=== PATIENT | female | born 1950 | race Caucasian/White ===

== ENCOUNTER 2017-03-19 16:56 | Inpatient (IN) | payer MEDICARE, OTHER ==
[~2017-03-19] VITALS: Ht 160 cm; Wt 60.8 kg
[2017-03-19] MEDS ORDERED: Z GUARD REMEDY PASTE 57 GM TUBE TOP PRN (23:00)
[2017-03-19] MEDS ORDERED: ASPI81TA31 PO (23:59)
[2017-03-19] MEDS ORDERED: BUSP10TA3 PO (23:59)
[2017-03-19] MEDS ORDERED: TRAM50TA2 PO (23:59)
[2017-03-19] MEDS ORDERED: BENZ1TAB7 PO (23:59)
[2017-03-19] MEDS ORDERED: AMLO10TA2 PO (23:59)
[2017-03-19] MEDS ORDERED: ACET-2154 PO (23:59)
[2017-03-19] MEDS ORDERED: MIRT7.5T10 PO (23:59)
[2017-03-19] MEDS ORDERED: CALC-977 PO (23:59)
[2017-03-19] MEDS ORDERED: RISP4TAB17 PO (23:59)
[2017-03-19] MEDS ORDERED: LISI-603 PO (23:59)
[2017-03-19] MEDS ORDERED: POLY17PO4 PO (23:59)
[2017-03-19] MEDS ORDERED: NA P133E RC (23:59)
[2017-03-19] MEDS ORDERED: PANT40TA4 PO (23:59)
[2017-03-19] MEDS ORDERED: OXYC-128 PO (23:59)
[2017-03-19] MEDS ORDERED: LEVO50TA PO (23:59)
[2017-03-19] MEDS ORDERED: METO25TA6 PO (23:59)
[2017-03-20 01:24] VITALS: BP 146/68
[2017-03-20 10:49] VITALS: BP 134/73
[2017-03-20] MEDS ORDERED: OXYCODONE/APAP 5-325 MG TABLET PO PRN ×3 (15:45→19:45)
[2017-03-20] MEDS: GABAPENTIN 100 MG CAPSULE PO SCH (17:02)
[2017-03-20] MEDS ORDERED: ACETAMINOPHEN 325 MG TABLET PO PRN (19:45)
[2017-03-20] MEDS ORDERED: Z GUARD REMEDY PASTE 57 GM TUBE TOP PRN (19:45)
[2017-03-20] MEDS ORDERED: ACETAMINOPHEN 325 MG TABLET PO SCH (19:45)
[2017-03-20] MEDS ORDERED: MAGNESIUM HYDROXIDE 30 ML LIQUID UDC PO PRN (19:45)
[2017-03-20] MEDS ORDERED: ZOLPIDEM 5 MG TABLET PO PRN (19:45)
[2017-03-20] MEDS ORDERED: ONDANSETRON 4 MG/2 ML VIAL IV PRN (19:45)
[2017-03-20] MEDS ORDERED: FLEET ENEMA 133 ML BOTTLE RC PRN (19:45)
[2017-03-20] MEDS ORDERED: OXYCODONE HCL 10 MG TAB.SR.12H PO SCH (21:00)
[2017-03-20] MEDS: MIRTAZAPINE 15 MG TABLET PO SCH (21:00)
[2017-03-20 21:01] VITALS: BP 144/74
[2017-03-20] MEDS: MIRALAX 17 GM POWD.PACK PO SCH (21:07)
[2017-03-20] MEDS: TRAMADOL HCL 50 MG TABLET PO SCH (21:08)
[2017-03-20] MEDS: BENZTROPINE MESYLATE 1 MG TABLET PO SCH (21:08)
[2017-03-20] MEDS: DOCUSATE SODIUM 100 MG CAPSULE PO SCH (21:09)
[2017-03-21] MEDS: TRAMADOL HCL 50 MG TABLET PO SCH ×2 (01:45→08:01)
[2017-03-21] MEDS: HYDROCODONE/APAP 5-325MG TABLET PO PRN ×2 (06:47→13:11)
[2017-03-21] MEDS: PANTOPRAZOLE SODIUM 40 MG TABLET.DR PO SCH (06:48)
[2017-03-21] MEDS: LEVOTHYROXINE SODIUM 50 MCG TABLET PO SCH (06:48)
[2017-03-21] MEDS ORDERED: PANTOPRAZOLE SODIUM 40 MG TABLET.DR PO SCH (07:00)
[2017-03-21 07:51] VITALS: BP 144/71
[2017-03-21] MEDS: AMLODIPINE 10 MG TABLET PO SCH (08:00)
[2017-03-21] MEDS: CALCIUM CARB/VITAMIN D 500MG-200UNITS TABLET PO SCH ×2 (08:00→16:06)
[2017-03-21] MEDS: ASPIRIN 81 MG TAB.CHEW PO SCH (08:00)
[2017-03-21] MEDS: NICOTINE 7 MG/24HR PATCH TD SCH (08:00)
[2017-03-21] MEDS: METOPROLOL TARTRATE 25 MG TABLET PO SCH ×2 (08:01→16:06)
[2017-03-21] MEDS: risperiDONE 2 MG TABLET PO SCH ×2 (08:01→16:05)
[2017-03-21] MEDS: GABAPENTIN 100 MG CAPSULE PO SCH ×2 (08:01→16:06)
[2017-03-21] MEDS: busPIRone 10 MG TABLET PO SCH ×2 (08:01→16:06)
[2017-03-21 08:26] LABS: BASOPHILS % (AUTO) 0.6 % (0.0-2.0); EOSINOPHILS # (AUTO) 0.4 K/uL (0.0-0.7); EOSINOPHILS % (AUTO) 5.3 % (0.0-7.0); HEMATOCRIT 29.4 % (31.2-41.9); HEMOGLOBIN 9.5 g/dL (10.9-14.3); LYMPHOCYTES # (AUTO) 1.9 K/uL (20.0-40.0); LYMPHOCYTES % (AUTO) 25.1 % (20.5-51.5); MEAN CORPUSCULAR HEMOGLOBIN 24.5 uug (24.7-32.8); MEAN CORPUSCULAR HGB CONC 32 g/dL (32.3-35.6); MEAN CORPUSCULAR VOLUME 75.8 fL (75.5-95.3); MONOCYTES # (AUTO) 0.6 K/uL (2.0-10.0); MONOCYTES % (AUTO) 7.5 % (0.0-11.0); NEUTROPHILS # (AUTO) 4.8 K/uL (1.8-8.9); NEUTROPHILS % (AUTO) 61.5 % (38.5-71.5); PLATELET COUNT (AUTO) 333 K/uL (179-408); RED BLOOD CELL COUNT(AUTO) 3.87 MIL/uL (3.63-4.92); WHITE BLOOD COUNT (AUTO) 7.7 K/uL (3.8-11.8)
[2017-03-21 08:38] LABS: CREATININE 1.2 mg/dL (0.6-1.3); MAGNESIUM 1.8 mg/dL (1.8-2.4); PHOSPHOROUS 4.1 mg/dL (2.5-4.9); POTASSIUM 4.1 mmol/L (3.5-5.1)
[2017-03-21] MEDS ORDERED: LISINOPRIL 20 MG TABLET PO SCH (09:00)
[2017-03-21] MEDS: LISINOPRIL 20 MG TABLET PO SCH (16:06)
[2017-03-21] MEDS: DOCUSATE SODIUM 100 MG CAPSULE PO SCH (20:38)
[2017-03-21] MEDS: MIRTAZAPINE 15 MG TABLET PO SCH (20:39)
[2017-03-21] MEDS: MIRALAX 17 GM POWD.PACK PO SCH (20:40)
[2017-03-21] MEDS: OXYCODONE HCL 10 MG TAB.SR.12H PO SCH (20:41)
[2017-03-21] MEDS: BENZTROPINE MESYLATE 1 MG TABLET PO SCH (20:43)
[2017-03-21 21:45] VITALS: BP 107/64
[2017-03-22] MEDS: PANTOPRAZOLE SODIUM 40 MG TABLET.DR PO SCH (06:07)
[2017-03-22] MEDS: LEVOTHYROXINE SODIUM 50 MCG TABLET PO SCH (06:07)
[2017-03-22 07:15] VITALS: BP 124/59
[2017-03-22] MEDS: CALCIUM CARB/VITAMIN D 500MG-200UNITS TABLET PO SCH ×2 (08:38→17:11)
[2017-03-22] MEDS: METOPROLOL TARTRATE 25 MG TABLET PO SCH ×2 (08:38→17:11)
[2017-03-22] MEDS: LISINOPRIL 20 MG TABLET PO SCH ×2 (08:39→17:14)
[2017-03-22] MEDS: risperiDONE 2 MG TABLET PO SCH ×2 (08:39→17:16)
[2017-03-22] MEDS: ASPIRIN 81 MG TAB.CHEW PO SCH (08:39)
[2017-03-22] MEDS: GABAPENTIN 100 MG CAPSULE PO SCH ×2 (08:39→17:11)
[2017-03-22] MEDS: AMLODIPINE 10 MG TABLET PO SCH (08:39)
[2017-03-22] MEDS: busPIRone 10 MG TABLET PO SCH ×2 (08:41→17:11)
[2017-03-22] MEDS: OXYCODONE HCL 10 MG TAB.SR.12H PO SCH ×2 (08:41→20:58)
[2017-03-22] MEDS: NICOTINE 7 MG/24HR PATCH TD SCH (08:41)
[2017-03-22] MEDS: DOCUSATE SODIUM 100 MG CAPSULE PO SCH (20:57)
[2017-03-22] MEDS: MIRTAZAPINE 15 MG TABLET PO SCH (20:58)
[2017-03-22] MEDS: BENZTROPINE MESYLATE 1 MG TABLET PO SCH (20:58)
[2017-03-22 20:59] VITALS: BP 126/52
[2017-03-22] MEDS: MIRALAX 17 GM POWD.PACK PO SCH (20:59)
[2017-03-23] MEDS: PANTOPRAZOLE SODIUM 40 MG TABLET.DR PO SCH (06:09)
[2017-03-23] MEDS: LEVOTHYROXINE SODIUM 50 MCG TABLET PO SCH (06:09)
[2017-03-23 08:20] VITALS: BP 136/83
[2017-03-23] MEDS: NICOTINE 7 MG/24HR PATCH TD SCH (10:25)
[2017-03-23] MEDS: METOPROLOL TARTRATE 25 MG TABLET PO SCH ×2 (10:26→17:54)
[2017-03-23] MEDS: OXYCODONE HCL 10 MG TAB.SR.12H PO SCH ×2 (10:26→21:05)
[2017-03-23] MEDS: LISINOPRIL 20 MG TABLET PO SCH ×2 (10:26→17:53)
[2017-03-23] MEDS: GABAPENTIN 100 MG CAPSULE PO SCH ×2 (10:26→17:45)
[2017-03-23] MEDS: busPIRone 10 MG TABLET PO SCH ×2 (10:27→17:46)
[2017-03-23] MEDS: AMLODIPINE 10 MG TABLET PO SCH (10:27)
[2017-03-23] MEDS: HYDROCODONE/APAP 5-325MG TABLET PO PRN (10:28)
[2017-03-23] MEDS: ASPIRIN 81 MG TAB.CHEW PO SCH (10:28)
[2017-03-23] MEDS: risperiDONE 2 MG TABLET PO SCH ×2 (10:28→17:46)
[2017-03-23] MEDS: CALCIUM CARB/VITAMIN D 500MG-200UNITS TABLET PO SCH ×2 (10:28→17:45)
[2017-03-23 20:27] VITALS: BP 128/73
[2017-03-23] MEDS: BENZTROPINE MESYLATE 1 MG TABLET PO SCH (21:04)
[2017-03-23] MEDS: DOCUSATE SODIUM 100 MG CAPSULE PO SCH (21:04)
[2017-03-23] MEDS: MIRTAZAPINE 15 MG TABLET PO SCH (21:05)
[2017-03-23] MEDS: MIRALAX 17 GM POWD.PACK PO SCH (21:05)
[2017-03-24] MEDS: PANTOPRAZOLE SODIUM 40 MG TABLET.DR PO SCH (06:08)
[2017-03-24] MEDS: LEVOTHYROXINE SODIUM 50 MCG TABLET PO SCH (06:08)
[2017-03-24 11:59] VITALS: BP 160/75
[2017-03-24] MEDS: risperiDONE 2 MG TABLET PO SCH ×2 (13:00→17:28)
[2017-03-24] MEDS: GABAPENTIN 100 MG CAPSULE PO SCH ×2 (13:00→17:28)
[2017-03-24] MEDS: busPIRone 10 MG TABLET PO SCH ×2 (13:01→17:28)
[2017-03-24] MEDS: OXYCODONE HCL 10 MG TAB.SR.12H PO SCH ×2 (13:01→21:20)
[2017-03-24] MEDS: ASPIRIN 81 MG TAB.CHEW PO SCH (13:01)
[2017-03-24] MEDS: AMLODIPINE 10 MG TABLET PO SCH (13:02)
[2017-03-24] MEDS: CALCIUM CARB/VITAMIN D 500MG-200UNITS TABLET PO SCH ×2 (13:02→17:28)
[2017-03-24] MEDS: METOPROLOL TARTRATE 25 MG TABLET PO SCH ×2 (13:02→17:29)
[2017-03-24] MEDS: LISINOPRIL 20 MG TABLET PO SCH ×2 (13:02→17:28)
[2017-03-24] MEDS: NICOTINE 7 MG/24HR PATCH TD SCH (13:05)
[2017-03-24 20:40] VITALS: BP 111/68
[2017-03-24] MEDS: BENZTROPINE MESYLATE 1 MG TABLET PO SCH (21:20)
[2017-03-24] MEDS: MIRTAZAPINE 15 MG TABLET PO SCH (21:20)
[2017-03-24] MEDS: DOCUSATE SODIUM 100 MG CAPSULE PO SCH (21:21)
[2017-03-24] MEDS: MIRALAX 17 GM POWD.PACK PO SCH (21:21)
[2017-03-25] MEDS: LEVOTHYROXINE SODIUM 50 MCG TABLET PO SCH ×2 (06:03→09:43)
[2017-03-25] MEDS: PANTOPRAZOLE SODIUM 40 MG TABLET.DR PO SCH ×2 (06:03→09:44)
[2017-03-25 08:35] VITALS: BP 123/66
[2017-03-25] MEDS: risperiDONE 2 MG TABLET PO SCH ×2 (09:43→17:51)
[2017-03-25] MEDS: AMLODIPINE 10 MG TABLET PO SCH (09:43)
[2017-03-25] MEDS: LISINOPRIL 20 MG TABLET PO SCH ×2 (09:44→17:54)
[2017-03-25] MEDS: busPIRone 10 MG TABLET PO SCH ×2 (09:44→17:52)
[2017-03-25] MEDS: GABAPENTIN 100 MG CAPSULE PO SCH ×2 (09:44→17:51)
[2017-03-25] MEDS: ASPIRIN 81 MG TAB.CHEW PO SCH (09:44)
[2017-03-25] MEDS: METOPROLOL TARTRATE 25 MG TABLET PO SCH ×2 (09:44→17:54)
[2017-03-25] MEDS: CALCIUM CARB/VITAMIN D 500MG-200UNITS TABLET PO SCH ×2 (09:45→17:51)
[2017-03-25] MEDS: OXYCODONE HCL 10 MG TAB.SR.12H PO SCH ×2 (09:45→20:37)
[2017-03-25] MEDS: NICOTINE 7 MG/24HR PATCH TD SCH (09:45)
[2017-03-25 20:26] VITALS: BP 142/80
[2017-03-25] MEDS: MIRALAX 17 GM POWD.PACK PO SCH (20:37)
[2017-03-25] MEDS: DOCUSATE SODIUM 100 MG CAPSULE PO SCH (20:37)
[2017-03-25] MEDS: MIRTAZAPINE 15 MG TABLET PO SCH (20:37)
[2017-03-25] MEDS: BENZTROPINE MESYLATE 1 MG TABLET PO SCH (20:37)
[2017-03-26 08:00] VITALS: BP 157/82
[2017-03-26] MEDS: GABAPENTIN 100 MG CAPSULE PO SCH ×2 (08:24→16:59)
[2017-03-26] MEDS: METOPROLOL TARTRATE 25 MG TABLET PO SCH ×2 (08:24→16:59)
[2017-03-26] MEDS: OXYCODONE HCL 10 MG TAB.SR.12H PO SCH ×2 (08:25→20:18)
[2017-03-26] MEDS: ASPIRIN 81 MG TAB.CHEW PO SCH (08:25)
[2017-03-26] MEDS: AMLODIPINE 10 MG TABLET PO SCH (08:26)
[2017-03-26] MEDS: risperiDONE 2 MG TABLET PO SCH ×2 (08:27→16:58)
[2017-03-26] MEDS: CALCIUM CARB/VITAMIN D 500MG-200UNITS TABLET PO SCH ×2 (08:27→16:59)
[2017-03-26] MEDS: LISINOPRIL 20 MG TABLET PO SCH ×2 (08:27→16:59)
[2017-03-26] MEDS: busPIRone 10 MG TABLET PO SCH ×2 (08:33→16:59)
[2017-03-26] MEDS: NICOTINE 7 MG/24HR PATCH TD SCH (08:33)
[2017-03-26] MEDS: DOCUSATE SODIUM 100 MG CAPSULE PO SCH (20:16)
[2017-03-26] MEDS: BENZTROPINE MESYLATE 1 MG TABLET PO SCH (20:16)
[2017-03-26] MEDS: MIRALAX 17 GM POWD.PACK PO SCH (20:18)
[2017-03-26] MEDS: MIRTAZAPINE 15 MG TABLET PO SCH (20:18)
[2017-03-26 20:50] VITALS: BP 125/64
[2017-03-27] MEDS: PANTOPRAZOLE SODIUM 40 MG TABLET.DR PO SCH (06:24)
[2017-03-27] MEDS: LEVOTHYROXINE SODIUM 50 MCG TABLET PO SCH (06:24)
[2017-03-27] MEDS: GABAPENTIN 100 MG CAPSULE PO SCH ×2 (08:41→17:00)
[2017-03-27] MEDS: risperiDONE 2 MG TABLET PO SCH ×2 (08:42→16:59)
[2017-03-27] MEDS: LISINOPRIL 20 MG TABLET PO SCH ×2 (08:42→16:59)
[2017-03-27] MEDS: NICOTINE 7 MG/24HR PATCH TD SCH (08:43)
[2017-03-27] MEDS: AMLODIPINE 10 MG TABLET PO SCH (08:43)
[2017-03-27] MEDS: ASPIRIN 81 MG TAB.CHEW PO SCH (08:43)
[2017-03-27] MEDS: METOPROLOL TARTRATE 25 MG TABLET PO SCH ×2 (08:43→17:00)
[2017-03-27] MEDS: busPIRone 10 MG TABLET PO SCH ×2 (08:43→16:59)
[2017-03-27] MEDS: OXYCODONE HCL 10 MG TAB.SR.12H PO SCH ×2 (08:43→21:00)
[2017-03-27] MEDS: CALCIUM CARB/VITAMIN D 500MG-200UNITS TABLET PO SCH ×2 (08:43→16:59)
[2017-03-27 08:53] VITALS: BP 146/64
[2017-03-27 20:43] VITALS: BP 103/52
[2017-03-27] MEDS: BENZTROPINE MESYLATE 1 MG TABLET PO SCH (21:39)
[2017-03-27] MEDS: MIRALAX 17 GM POWD.PACK PO SCH (21:39)
[2017-03-27] MEDS: DOCUSATE SODIUM 100 MG CAPSULE PO SCH (21:39)
[2017-03-27] MEDS: MIRTAZAPINE 15 MG TABLET PO SCH (21:40)
[2017-03-28] MEDS: PANTOPRAZOLE SODIUM 40 MG TABLET.DR PO SCH (06:40)
[2017-03-28] MEDS: LEVOTHYROXINE SODIUM 50 MCG TABLET PO SCH (06:40)
[2017-03-28] MEDS: ASPIRIN 81 MG TAB.CHEW PO SCH (08:08)
[2017-03-28] MEDS: LISINOPRIL 20 MG TABLET PO SCH ×2 (08:09→16:42)
[2017-03-28] MEDS: CALCIUM CARB/VITAMIN D 500MG-200UNITS TABLET PO SCH ×2 (08:09→16:41)
[2017-03-28] MEDS: OXYCODONE HCL 10 MG TAB.SR.12H PO SCH ×2 (08:09→20:46)
[2017-03-28] MEDS: METOPROLOL TARTRATE 25 MG TABLET PO SCH ×2 (08:09→16:42)
[2017-03-28] MEDS: busPIRone 10 MG TABLET PO SCH ×2 (08:09→16:41)
[2017-03-28] MEDS: GABAPENTIN 100 MG CAPSULE PO SCH ×2 (08:09→16:41)
[2017-03-28] MEDS: risperiDONE 2 MG TABLET PO SCH ×2 (08:09→16:41)
[2017-03-28] MEDS: AMLODIPINE 10 MG TABLET PO SCH (08:10)
[2017-03-28] MEDS: NICOTINE 7 MG/24HR PATCH TD SCH (08:22)
[2017-03-28 10:01] VITALS: BP 144/66
[2017-03-28 20:26] VITALS: BP 96/46
[2017-03-28] MEDS: MIRALAX 17 GM POWD.PACK PO SCH ×2 (20:45→20:54)
[2017-03-28] MEDS: DOCUSATE SODIUM 100 MG CAPSULE PO SCH (20:46)
[2017-03-28] MEDS: BENZTROPINE MESYLATE 1 MG TABLET PO SCH (20:46)
[2017-03-28] MEDS: MIRTAZAPINE 15 MG TABLET PO SCH (20:46)
[2017-03-29] MEDS: PANTOPRAZOLE SODIUM 40 MG TABLET.DR PO SCH (06:22)
[2017-03-29] MEDS: LEVOTHYROXINE SODIUM 50 MCG TABLET PO SCH (06:22)
[2017-03-29 08:17] VITALS: BP 128/60
[2017-03-29] MEDS: NICOTINE 7 MG/24HR PATCH TD SCH (09:31)
[2017-03-29] MEDS: GABAPENTIN 100 MG CAPSULE PO SCH ×2 (09:31→17:10)
[2017-03-29] MEDS: ASPIRIN 81 MG TAB.CHEW PO SCH (09:31)
[2017-03-29] MEDS: CALCIUM CARB/VITAMIN D 500MG-200UNITS TABLET PO SCH ×2 (09:32→17:10)
[2017-03-29] MEDS: busPIRone 10 MG TABLET PO SCH ×2 (09:32→17:10)
[2017-03-29] MEDS: risperiDONE 2 MG TABLET PO SCH ×2 (09:32→17:10)
[2017-03-29] MEDS: AMLODIPINE 10 MG TABLET PO SCH (09:32)
[2017-03-29] MEDS: OXYCODONE HCL 10 MG TAB.SR.12H PO SCH ×2 (09:33→20:37)
[2017-03-29] MEDS: LISINOPRIL 20 MG TABLET PO SCH ×2 (09:33→18:12)
[2017-03-29] MEDS: METOPROLOL TARTRATE 25 MG TABLET PO SCH ×2 (09:34→18:12)
[2017-03-29 20:00] VITALS: BP 106/47
[2017-03-29] MEDS: DOCUSATE SODIUM 100 MG CAPSULE PO SCH (20:35)
[2017-03-29] MEDS: MIRTAZAPINE 15 MG TABLET PO SCH (20:37)
[2017-03-29] MEDS: BENZTROPINE MESYLATE 1 MG TABLET PO SCH (20:37)
[2017-03-29] MEDS: MIRALAX 17 GM POWD.PACK PO SCH (21:00)
[2017-03-30] MEDS: PANTOPRAZOLE SODIUM 40 MG TABLET.DR PO SCH (06:17)
[2017-03-30] MEDS: LEVOTHYROXINE SODIUM 50 MCG TABLET PO SCH (06:17)
[2017-03-30 07:35] VITALS: BP 152/65
[2017-03-30] MEDS: OXYCODONE HCL 10 MG TAB.SR.12H PO SCH ×2 (10:33→20:22)
[2017-03-30] MEDS: NICOTINE 7 MG/24HR PATCH TD SCH (10:33)
[2017-03-30] MEDS: AMLODIPINE 10 MG TABLET PO SCH (10:34)
[2017-03-30] MEDS: risperiDONE 2 MG TABLET PO SCH ×2 (10:34→18:15)
[2017-03-30] MEDS: busPIRone 10 MG TABLET PO SCH ×2 (10:34→18:13)
[2017-03-30] MEDS: ASPIRIN 81 MG TAB.CHEW PO SCH (10:34)
[2017-03-30] MEDS: LISINOPRIL 20 MG TABLET PO SCH ×2 (10:34→18:15)
[2017-03-30] MEDS: GABAPENTIN 100 MG CAPSULE PO SCH ×2 (10:35→18:14)
[2017-03-30] MEDS: METOPROLOL TARTRATE 25 MG TABLET PO SCH ×2 (10:35→18:13)
[2017-03-30] MEDS: CALCIUM CARB/VITAMIN D 500MG-200UNITS TABLET PO SCH ×2 (10:35→18:14)
[2017-03-30] MEDS: DOCUSATE SODIUM 100 MG CAPSULE PO SCH (20:22)
[2017-03-30] MEDS: MIRTAZAPINE 15 MG TABLET PO SCH (20:22)
[2017-03-30] MEDS: BENZTROPINE MESYLATE 1 MG TABLET PO SCH (20:22)
[2017-03-30] MEDS: MIRALAX 17 GM POWD.PACK PO SCH (20:23)
[2017-03-30 20:30] VITALS: BP 138/69
[2017-03-31] MEDS: PANTOPRAZOLE SODIUM 40 MG TABLET.DR PO SCH (06:20)
[2017-03-31] MEDS: LEVOTHYROXINE SODIUM 50 MCG TABLET PO SCH (06:20)
[2017-03-31 08:08] VITALS: BP 121/61
[2017-03-31] MEDS: LISINOPRIL 20 MG TABLET PO SCH ×2 (08:56→17:06)
[2017-03-31] MEDS: NICOTINE 7 MG/24HR PATCH TD SCH (08:56)
[2017-03-31] MEDS: GABAPENTIN 100 MG CAPSULE PO SCH ×2 (08:57→17:07)
[2017-03-31] MEDS: ASPIRIN 81 MG TAB.CHEW PO SCH (08:57)
[2017-03-31] MEDS: METOPROLOL TARTRATE 25 MG TABLET PO SCH ×2 (08:57→17:07)
[2017-03-31] MEDS: CALCIUM CARB/VITAMIN D 500MG-200UNITS TABLET PO SCH ×2 (08:57→17:06)
[2017-03-31] MEDS: AMLODIPINE 10 MG TABLET PO SCH (08:57)
[2017-03-31] MEDS: busPIRone 10 MG TABLET PO SCH ×2 (08:57→17:07)
[2017-03-31] MEDS: risperiDONE 2 MG TABLET PO SCH ×2 (08:57→17:07)
[2017-03-31] MEDS: OXYCODONE HCL 10 MG TAB.SR.12H PO SCH ×2 (09:00→20:20)
[2017-03-31] MEDS: DOCUSATE SODIUM 100 MG CAPSULE PO SCH (20:19)
[2017-03-31] MEDS: BENZTROPINE MESYLATE 1 MG TABLET PO SCH (20:20)
[2017-03-31] MEDS: MIRTAZAPINE 15 MG TABLET PO SCH (20:20)
[2017-03-31] MEDS: MIRALAX 17 GM POWD.PACK PO SCH (20:21)
[2017-03-31 20:22] VITALS: BP 123/57
[2017-04-01] MEDS: LEVOTHYROXINE SODIUM 50 MCG TABLET PO SCH (06:28)
[2017-04-01] MEDS: PANTOPRAZOLE SODIUM 40 MG TABLET.DR PO SCH (06:28)
[2017-04-01] MEDS: LISINOPRIL 20 MG TABLET PO SCH ×2 (09:16→17:55)
[2017-04-01] MEDS: CALCIUM CARB/VITAMIN D 500MG-200UNITS TABLET PO SCH ×2 (09:16→17:55)
[2017-04-01] MEDS: ASPIRIN 81 MG TAB.CHEW PO SCH (09:17)
[2017-04-01] MEDS: busPIRone 10 MG TABLET PO SCH ×2 (09:17→17:55)
[2017-04-01] MEDS: risperiDONE 2 MG TABLET PO SCH ×2 (09:17→17:55)
[2017-04-01] MEDS: GABAPENTIN 100 MG CAPSULE PO SCH ×2 (09:17→17:55)
[2017-04-01] MEDS: METOPROLOL TARTRATE 25 MG TABLET PO SCH ×2 (09:19→17:57)
[2017-04-01] MEDS: AMLODIPINE 10 MG TABLET PO SCH (09:19)
[2017-04-01] MEDS: NICOTINE 7 MG/24HR PATCH TD SCH (09:20)
[2017-04-01] MEDS: OXYCODONE HCL 10 MG TAB.SR.12H PO SCH ×2 (09:21→20:23)
[2017-04-01 09:48] VITALS: BP 162/79
[2017-04-01 19:30] VITALS: BP 127/59
[2017-04-01] MEDS: MIRTAZAPINE 15 MG TABLET PO SCH (20:22)
[2017-04-01] MEDS: BENZTROPINE MESYLATE 1 MG TABLET PO SCH (20:22)
[2017-04-01] MEDS: MIRALAX 17 GM POWD.PACK PO SCH (20:22)
[2017-04-01] MEDS: DOCUSATE SODIUM 100 MG CAPSULE PO SCH (20:23)
[2017-04-02] MEDS: LEVOTHYROXINE SODIUM 50 MCG TABLET PO SCH (06:27)
[2017-04-02] MEDS: PANTOPRAZOLE SODIUM 40 MG TABLET.DR PO SCH (06:27)
[2017-04-02] MEDS: METOPROLOL TARTRATE 25 MG TABLET PO SCH ×2 (09:00→17:05)
[2017-04-02] MEDS: OXYCODONE HCL 10 MG TAB.SR.12H PO SCH ×2 (09:00→21:09)
[2017-04-02 09:03] VITALS: BP 115/54
[2017-04-02] MEDS: ASPIRIN 81 MG TAB.CHEW PO SCH (12:27)
[2017-04-02] MEDS: busPIRone 10 MG TABLET PO SCH ×2 (12:27→17:06)
[2017-04-02] MEDS: risperiDONE 2 MG TABLET PO SCH ×2 (12:27→17:05)
[2017-04-02] MEDS: GABAPENTIN 100 MG CAPSULE PO SCH ×2 (12:27→17:05)
[2017-04-02] MEDS: CALCIUM CARB/VITAMIN D 500MG-200UNITS TABLET PO SCH ×2 (12:28→17:06)
[2017-04-02] MEDS: LISINOPRIL 20 MG TABLET PO SCH ×2 (12:30→17:06)
[2017-04-02] MEDS: AMLODIPINE 10 MG TABLET PO SCH (12:30)
[2017-04-02] MEDS: NICOTINE 7 MG/24HR PATCH TD SCH (12:31)
[2017-04-02 20:37] VITALS: BP 116/61
[2017-04-02] MEDS: MIRALAX 17 GM POWD.PACK PO SCH ×2 (21:00→21:10)
[2017-04-02] MEDS: DOCUSATE SODIUM 100 MG CAPSULE PO SCH ×2 (21:00→21:07)
[2017-04-02] MEDS: MIRTAZAPINE 15 MG TABLET PO SCH (21:08)
[2017-04-02] MEDS: BENZTROPINE MESYLATE 1 MG TABLET PO SCH (21:08)
[2017-04-03] MEDS: PANTOPRAZOLE SODIUM 40 MG TABLET.DR PO SCH (06:05)
[2017-04-03] MEDS: LEVOTHYROXINE SODIUM 50 MCG TABLET PO SCH (06:05)
[2017-04-03 07:41] LABS: BASOPHILS # (AUTO) 0.1 K/uL (0.0-8.0); EOSINOPHILS # (AUTO) 0.3 K/uL (0.0-0.7); EOSINOPHILS % (AUTO) 5.5 % (0.0-7.0); HEMATOCRIT 23.9 % (31.2-41.9); LYMPHOCYTES # (AUTO) 2.1 K/uL (20.0-40.0); LYMPHOCYTES % (AUTO) 33.7 % (20.5-51.5); MEAN CORPUSCULAR HEMOGLOBIN 24.8 uug (24.7-32.8); MEAN CORPUSCULAR HGB CONC 32 g/dL (32.3-35.6); MEAN CORPUSCULAR VOLUME 78.1 fL (75.5-95.3); MONOCYTES # (AUTO) 0.4 K/uL (2.0-10.0); MONOCYTES % (AUTO) 6.6 % (0.0-11.0); NEUTROPHILS # (AUTO) 3.4 K/uL (1.8-8.9); NEUTROPHILS % (AUTO) 53.2 % (38.5-71.5); PLATELET COUNT (AUTO) 293 K/uL (179-408); RED BLOOD CELL COUNT(AUTO) 3.07 MIL/uL (3.63-4.92); WHITE BLOOD COUNT (AUTO) 6.3 K/uL (3.8-11.8)
[2017-04-03 07:54] LABS: BILIRUBIN,TOTAL 0.5 mg/dL (0.2-1.0); CREATININE 1.1 mg/dL (0.6-1.3); MAGNESIUM 1.9 mg/dL (1.8-2.4); PHOSPHOROUS 3.8 mg/dL (2.5-4.9); POTASSIUM 3.9 mmol/L (3.5-5.1); TOTAL PROTEIN, SERUM 7.3 g/dL (6.4-8.2)
[2017-04-03 07:56] LABS: HEMOGLOBIN 7.7 g/dL (10.9-14.3)
[2017-04-03 08:00] VITALS: BP 155/81
[2017-04-03] MEDS: risperiDONE 2 MG TABLET PO SCH ×2 (09:01→17:13)
[2017-04-03] MEDS: NICOTINE 7 MG/24HR PATCH TD SCH (09:01)
[2017-04-03] MEDS: ASPIRIN 81 MG TAB.CHEW PO SCH (09:01)
[2017-04-03] MEDS: OXYCODONE HCL 10 MG TAB.SR.12H PO SCH (09:01)
[2017-04-03] MEDS: AMLODIPINE 10 MG TABLET PO SCH (09:02)
[2017-04-03] MEDS: LISINOPRIL 20 MG TABLET PO SCH ×2 (09:02→17:13)
[2017-04-03] MEDS: busPIRone 10 MG TABLET PO SCH ×2 (09:02→17:13)
[2017-04-03] MEDS: CALCIUM CARB/VITAMIN D 500MG-200UNITS TABLET PO SCH ×2 (09:02→17:13)
[2017-04-03] MEDS: GABAPENTIN 100 MG CAPSULE PO SCH ×2 (09:02→17:13)
[2017-04-03] MEDS: METOPROLOL TARTRATE 25 MG TABLET PO SCH ×2 (09:02→17:14)
[2017-04-03 19:30] VITALS: BP 130/67
[2017-04-03] MEDS: MIRALAX 17 GM POWD.PACK PO SCH (21:00)
[2017-04-03] MEDS: DOCUSATE SODIUM 100 MG CAPSULE PO SCH (21:00)
[2017-04-03] MEDS: BENZTROPINE MESYLATE 1 MG TABLET PO SCH (21:22)
[2017-04-03] MEDS: MIRTAZAPINE 15 MG TABLET PO SCH (21:22)
[2017-04-04] MEDS: LEVOTHYROXINE SODIUM 50 MCG TABLET PO SCH (06:13)
[2017-04-04] MEDS: PANTOPRAZOLE SODIUM 40 MG TABLET.DR PO SCH (06:13)
[2017-04-04] MEDS: GABAPENTIN 100 MG CAPSULE PO SCH ×2 (08:06→16:33)
[2017-04-04] MEDS: risperiDONE 2 MG TABLET PO SCH ×2 (08:06→16:33)
[2017-04-04] MEDS: CALCIUM CARB/VITAMIN D 500MG-200UNITS TABLET PO SCH ×2 (08:07→16:33)
[2017-04-04] MEDS: busPIRone 10 MG TABLET PO SCH ×2 (08:07→16:33)
[2017-04-04] MEDS: ASPIRIN 81 MG TAB.CHEW PO SCH (08:07)
[2017-04-04] MEDS: LISINOPRIL 20 MG TABLET PO SCH ×2 (08:07→16:33)
[2017-04-04] MEDS: METOPROLOL TARTRATE 25 MG TABLET PO SCH ×2 (08:07→16:34)
[2017-04-04] MEDS: AMLODIPINE 10 MG TABLET PO SCH (08:07)
[2017-04-04] MEDS: NICOTINE 7 MG/24HR PATCH TD SCH (08:08)
[2017-04-04 09:23] VITALS: BP 145/63
[2017-04-04 16:34] VITALS: BP 126/63
[2017-04-04] MEDS: HYDROCODONE/APAP 5-325MG TABLET PO PRN (17:41)
== END 2017-04-04 18:30 | disposition home health service (06) | DRG 561 ==
PROVIDERS: ADMIT Physical Medicine & Rehabilitation Pain Medicine; ATTEND Physical Medicine & Rehabilitation Pain Medicine
DX: Z47.81 Encounter for orthopedic aftercare following surgical amputation (principal); Z89.611 Acquired absence of right leg above knee; F20.9 Schizophrenia, unspecified; J44.9 Chronic obstructive pulmonary disease, unspecified; E03.9 Hypothyroidism, unspecified; D50.9 Iron deficiency anemia, unspecified; D63.8 Anemia in other chronic diseases classified elsewhere; I10 Essential (primary) hypertension; M19.90 Unspecified osteoarthritis, unspecified site; R26.9 Unspecified abnormalities of gait and mobility; R53.1 Weakness; F32.9 Major depressive disorder, single episode, unspecified; K21.9 Gastro-esophageal reflux disease without esophagitis; Z66 Do not resuscitate; Z82.3 Family history of stroke; Z82.49 Family history of ischemic heart disease and other diseases of the circulatory system; Z90.49 Acquired absence of other specified parts of digestive tract; Z88.6 Allergy status to analgesic agent
CPT/HCPCS: 36415; 70030-TC; 83735; 84100; 85025; 92523; 92526; 92610; 97110; 97112; 97116; 97165; 97530; 97535; A4663; A9150